=== PATIENT | male | born 1950 | race Caucasian/White ===

== ENCOUNTER 2016-11-08 17:04 | Emergency (ER) | payer MEDICARE, BC ==
[~2016-11-08] VITALS: Ht 177.8 cm; Wt 98.9 kg
[2016-11-08] MEDS ORDERED: IV NORMAL SALINE 1,000ML 1,000 ML IV SCH (17:15)
[2016-11-08] MEDS ORDERED: 0.9 % SODIUM CHLORIDE 10 ML DISP.SYRIN. IV PRN (17:15)
--- NOTE | 2016-11-08 17:28 | PHYS DOC ---
Past History Past Medical History: Anxiety, CAD, High Cholesterol, Heart Disease, Hypertension Additional Past Medical Histor: Parkinson's disease Additional Past Surgical Histo: cardiac stents Smoking: Cigarettes, Quit Greater Than 1 Year Alcohol Use: Sober Drug Use: None Adult General Chief Complaint Chief Complaint: hypertension and anxiety HPI HPI Patient is a pleasant 66-year-old male with history of hypertension, cholesterolemia, early onset Parkinson's, heart disease, anxiety who presents with hypertension and anxiety after being evaluated at a pain management clinic earlier today. Patient while being evaluated Procedure was noted to have elevated blood pressures. He denies any symptoms other than anxiety with this elevated blood pressure. Denies any chest pain, shortness breath, change in vision, problems speaking, problems with memory, focal neurologic deficits, blood in his urine, or other symptoms. He denies any change in medications at this time. He does have a history of relatively labile hypertension. His coal washer is Dr. Cotto over the [facility] at his regular doctor is Dr. Mukherjee PCP Review of Systems Review of Systems Constitutional: Denies fever or chills [] Eyes: Denies change in visual acuity, redness, or eye pain [] HENT: Denies nasal congestion or sore throat [] Respiratory: Denies cough or shortness of breath [] Cardiovascular: No additional information not addressed in HPI [] GI: Denies abdominal pain, nausea, vomiting, bloody stools or diarrhea [] : Denies dysuria or hematuria [] Musculoskeletal: He does complain of chronic back pain. Integument: Denies rash or skin lesions [] Neurologic: Denies headache, focal weakness or sensory changes [] Endocrine: Denies polyuria or polydipsia [] Psych: Does claim to be very anxious Physical Exam Physical Exam The central cartilage chart demonstrates severe hypertension with a blood pressure 122/120 5 saturation 94% on room air respiratory rate is 24 heart rate is 87. Constitutional: Well developed, well nourished, no acute distress, non-toxic appearance. [] HENT: Normocephalic, atraumatic, bilateral external ears normal, oropharynx moist, no oral exudates, nose normal. [] Eyes: PERRLA, EOMI, conjunctiva normal, no discharge. [] Neck: Normal range of motion, no tenderness, supple, no stridor. [] Cardiovascular:Heart rate regular rhythm, no murmur [] Lungs & Thorax: Bilateral breath sounds clear to auscultation [] Abdomen: Bowel sounds normal, soft, no tenderness, no masses, no pulsatile masses. [] Skin: Warm, dry, no erythema, no rash. [] Extremities: No tenderness, no cyanosis, no clubbing, ROM intact, no edema. [] Neurologic: Alert and oriented X 3, normal motor function, normal sensory function, no focal deficits noted. [] Psychologic: Very anxious with a blunted affect and judgment seems intact. EKG EKG [] EKG timed 5:25 PM 11/08/[address] Frederick demonstrates sinus rhythm with a heart rate of 80 MT interval of 150 which is normal QRS which is normal at 98 QTC is 03/29/15. Patient has some nonseptic T-wave inversions V1 no other systemic changes consistent with acute cardiac ischemia syndrome. Radiology/Procedures Radiology/Procedures [] Course & Med Decision Making Course & Med Decision Making Pertinent Labs and Imaging studies reviewed. (See chart for details) at this point patient's EKG does not demonstrate any signs of acute coronary ischemia from his hypertension. Pending troponin, CMP, urinalysis and chest x-ray. Care will be coronary to the oncoming physician Dr.Mag Vines. I have given him an IV dose of labetalol to see if I can get his blood pressure did come down approximately 30 points. If not I would advise admission to the hospital for hypertensive urgency as necessary. [] Dragon Disclaimer Dragon Disclaimer This chart was dictated in whole or in part using Voice Recognition software in a busy, high-work load, and often noisy Emergency Department environment. It may contain unintended and wholly unrecognized errors or omissions. Departure Departure: Impression: Primary Impression: Hypertensive urgency Additional Impression: Anxiety Referrals: LIDIA DIALLO APRN (PCP) Problem Qualifiers SALTY FREDERICK MD Nov 08, 2016 17:28
[2016-11-08] MEDS ORDERED: LORazepam 2 MG/ML VIAL IV ONE (17:30)
[2016-11-08] MEDS ORDERED: LABETALOL 20 MG/4 ML DISP.SYRIN. IVP ONE (17:30)
[2016-11-08] MEDS ORDERED: ASPIRIN 81 MG TAB.CHEW PO ONE (17:30)
--- NOTE | 2016-11-08 17:40 | EKG ---
[address] [address] Test Date: 2016-11-08 Test Time: 17:25:51 Pat Name: DEJA NUNEZ Department: Room: Gender: M Title Supervisor: BLAINE : [id number] Requested By: SALTY FREDERICK Order Number: [id number] Reading MD: Measurements Intervals [place] Rate: 80 P: 0 WA: 150 QRS: 5 QRSD: 98 T: 17 QT: 358 QTc: 416 Interpretive Statements SINUS RHYTHM LEFT ATRIAL ABNORMALITY QRS(T) CONTOUR ABNORMALITY CANNOT RULE OUT ANTEROSEPTAL MYOCARDIAL DAMAGE CANNOT RULE OUT INFERIOR MYOCARDIAL DAMAGE RI6.01 Unconfirmed report No previous ECG available for comparison
[2016-11-08 17:57] LABS: BASO % 0 % (0-3); EOS # 0.2 x10^3/uL (0.0-0.7); EOS % 2 % (0-3); HEMATOCRIT 45.3 % (39.0-53.0); HEMOGLOBIN 15.5 g/dL (13.0-17.5); LYMPH # 1.3 x10^3/uL (1.0-4.8); LYMPH % 14 % (24-48); MEAN CORPUSCULAR HEMOGLOBIN 30 pg (25-35); MEAN CORPUSCULAR HGB CONC 34 g/dL (31-37); MEAN CORPUSCULAR VOLUME 89 fL (79-100); MONO # 0.5 x10^3/uL (0.0-1.1); MONO % 6 % (0-9); NEUT # 7.1 x10^3uL (1.8-7.7); NEUT % 78 % (31-73); PLATELET COUNT 175 x10^3/uL (140-400); RED CELL DISTRIBUTION WIDTH 13.2 % (11.5-14.5); WHITE BLOOD COUNT 9.2 x10^3/uL (4.0-11.0)
[2016-11-08 18:16] LABS: ALBUMIN/GLOBULIN RATIO 1.4 (1.0-1.7); CREATININE 0.9 mg/dL (0.7-1.3); GFR 83.9; POTASSIUM 3.9 mmol/L (3.5-5.1); TOTAL BILIRUBIN 0.8 mg/dL (0.2-1.0); TOTAL PROTEIN 6.8 g/dL (6.4-8.2)
[2016-11-08 18:43] LABS: BACTERIA,URINE 0 /HPF (0-FEW); BILIRUBIN,URINE NEG (NEG); CLARITY,URINE CLEAR; COLOR,URINE YELLOW; GLUCOSE,URINE NEG (NEG); NITRITE,URINE NEG (NEG); RBC,URINE 0 /HPF (0-2); UROBILINOGEN,URINE 0.2 mg/dL (0.2 mg/dL); WBC,URINE 0 /HPF (0-4)
[2016-11-08] MEDS ORDERED: CARVEDILOL 12.5 MG TABLET PO STA (19:40)
[2016-11-08] MEDS ORDERED: diazePAM 2 MG TABLET PO ONE (19:45)
[2016-11-08] MEDS ORDERED: amLODIPine BESYLATE 5 MG TABLET PO ONE (19:45)
[2016-11-08 21:03] VITALS: BP 190/111
--- NOTE | 2016-11-08 21:55 | PHYS DOC ---
Departure Departure: Impression: Primary Impression: Hypertensive urgency Additional Impression: Anxiety Disposition: 01 HOME, SELF-CARE Condition: IMPROVED Referrals: LIDIA DIALLO APRN (PCP) Patient Instructions: Hypertension Additional Instructions: Please call your family doctor or superintendent renting managing in the morning for reevaluation of his blood pressure. Return the ER if you have any concerns throughout the course of the night or any concerns prior to seeing her family doctor. Assessment Status/Problems: Doing well Additional comments: This is a 66-year-old gentleman who was signed out to me for further evaluation of his elevated blood pressure. Patient's ER workup has been unremarkable thus far. Patient exhibits no signs or symptoms that would be be consistent with hypertensive emergency/an organ damage. Patient has been given a dose of labetalol IV, Ativan IV. Patient's blood pressures remained elevated. Patient was then given his nighttime dose of carvedilol and Valium in the ED. Patient also given a dose of by mouth 10 mg Norvasc to initiate therapy for his hypertension. While in the ER the patient's blood pressure has slightly improved from his visit with the pain specialist. Patient's systolic now is 190 and his diastolic is 101. Patient was in the greater than 220/110 range prior to arrival. Patient's blood pressure has been coming down gradually. I want to avoid overaggressive treatment of his hypertension. We have initiated therapy and the patient feel very comfortable with him going home. reports that he is very anxious currently because he is here in the hospital and he will do much better if he went home to relax. She reports she is hungry and is agitated every time the blood pressure goes up. Patient's thinks that it would be in his best interest to discharge him here and she will follow his blood pressure closely at home and she will call his doctor and superintendent renting managing in the morning for further evaluation and recommendations. Given that the patient's does not exhibit any evidence of end organ damage I feel that this is probably an appropriate course of action. I personally topical admitting him to the hospital and does appear to agitate him even further. I feel that it would be appropriate to discharge him home at this time since his blood pressure has improved from the time that he was over at the pain center and we have initiated therapy here in the ED. Patient's otherwise clinically and hemodynamically stable at this time to be discharged home with further outpatient evaluation and monitoring of his blood pressure. reports that if his blood pressure starts to spike again that she will bring him back to the ER. Problem Qualifiers TAMIR OSUNA MD Nov 08, 2016 21:55
--- NOTE | 2016-11-09 07:36 | RAD ---
Chest radiograph 11/08/2016 at 1717 hours Indication: Hypertension Comparison: None available Technique: Portable upright frontal view of the chest is provided. Findings: Cardiomediastinal silhouette is enlarged no pleural effusions, pulmonary vascular congestion or pneumothorax. The lungs are clear. Osseous structures are normal. Impression: Cardiomegaly without acute cardiopulmonary process.
== END 2016-11-08 22:15 | disposition home or self-care (01) ==
LOC: ER 17:04
DX: I16.0 Hypertensive urgency (principal); F41.9 Anxiety disorder, unspecified; G89.29 Other chronic pain; E78.00 Pure hypercholesterolemia, unspecified; F17.210 Nicotine dependence, cigarettes, uncomplicated; I25.10 Atherosclerotic heart disease of native coronary artery without angina pectoris; I11.9 Hypertensive heart disease without heart failure
CPT/HCPCS: 36415; 71010; 80053; 81001; 82947; 83880; 84484; 85025; 93005; 96361; 96374; 96375; 99285; J2060; J3490; J7030

== ENCOUNTER → 2017-01-03 | Outpatient (CLI) | payer MEDICARE, BC ==
[~2017-01-03] MED LIST: BUPIVACAINE MPF 0.5% 30 ML VIAL. ONE; IV NORMAL SALINE 250ML 250 ML ONE; LIDOCAINE 1% PF 30 ML VIAL. ONE; LIDOCAINE 2% PF Vial for OR 5 ML VIAL. ONE; MIDAZOLAM HCL PF 2 MG/2 ML VIAL. ONE; PROPOFOL 0 ML IV ONE; methylPREDNISolone ACETATE 40 MG/ML VIAL. ONE
== END | disposition home or self-care (01) ==
LOC: SURG 07:49
PROVIDERS: ATTEND Anesthesiology Pain Medicine
DX: M47.816 Spondylosis without myelopathy or radiculopathy, lumbar region (principal)
CPT/HCPCS: 64635; 64636; 82947; J1030; J2001; J2250; J3010; J3490; J7050; J2704

== ENCOUNTER → 2017-01-24 | Outpatient (CLI) | payer MEDICARE, BC ==
[~2017-01-24] MED LIST changes: +BUPIVACAINE MPF 0.25% 10 ML VIAL. ONE; -BUPIVACAINE MPF 0.5% 30 ML VIAL. ONE; +IOHEXOL 300 MG/ML 50 ML VIAL. ONE; -IV NORMAL SALINE 250ML 250 ML ONE; -LIDOCAINE 2% PF Vial for OR 5 ML VIAL. ONE; -MIDAZOLAM HCL PF 2 MG/2 ML VIAL. ONE; -PROPOFOL 0 ML IV ONE
== END | disposition home or self-care (01) ==
LOC: SURG 14:07
PROVIDERS: ATTEND Anesthesiology Pain Medicine
DX: M54.16 Radiculopathy, lumbar region (principal); I10 Essential (primary) hypertension; M19.91 Primary osteoarthritis, unspecified site; E11.9 Type 2 diabetes mellitus without complications
CPT/HCPCS: 64483; 64484; J1030; J2001; J3490; Q9967

== ENCOUNTER → 2017-02-13 | Outpatient (CLI) | payer MEDICARE, BC ==
[~2017-02-13] MED LIST changes: +DEXAMETHASONE SOD PHOS 4 MG/ML VIAL ONE; -IOHEXOL 300 MG/ML 50 ML VIAL. ONE; -LIDOCAINE 1% PF 30 ML VIAL. ONE; -methylPREDNISolone ACETATE 40 MG/ML VIAL. ONE
== END | disposition home or self-care (01) ==
LOC: SURG 14:35
PROVIDERS: ATTEND Anesthesiology
DX: M79.1 Myalgia (principal); I10 Essential (primary) hypertension; M19.91 Primary osteoarthritis, unspecified site; J32.9 Chronic sinusitis, unspecified
CPT/HCPCS: 20553; J1100; J3490

== ENCOUNTER → 2017-05-31 | Outpatient (CLI) | payer MEDICARE, BC ==
[~2017-05-31] MED LIST changes: -DEXAMETHASONE SOD PHOS 4 MG/ML VIAL ONE; +LIDOCAINE 1% PF 30 ML VIAL. ONE
== END | disposition home or self-care (01) ==
LOC: SURG 12:30
PROVIDERS: ATTEND Anesthesiology Pain Medicine
DX: M79.1 Myalgia (principal); I10 Essential (primary) hypertension; E11.9 Type 2 diabetes mellitus without complications; M19.90 Unspecified osteoarthritis, unspecified site; Z95.5 Presence of coronary angioplasty implant and graft; Z79.899 Other long term (current) drug therapy; Z79.82 Long term (current) use of aspirin; Z79.84 Long term (current) use of oral hypoglycemic drugs
CPT/HCPCS: 20553; J2001; J3490; 20550; 99213

== ENCOUNTER → 2017-10-05 | Outpatient (CLI) | payer MEDICARE, BC ==
[~2017-10-05] MED LIST changes: +ACET-1571 PO; +ALPR0.5T PO; +ASPI81TA50 PO; -BUPIVACAINE MPF 0.25% 10 ML VIAL. ONE; +BUSP15TA PO; +CARB1TAB2 PO; +CARV25TA PO; +CYAN1TAB17 PO; +GABA-586 PO; +HYDR-2758 PO; +LACT1CAP8 PO; +LEVO1CAP PO; -LIDOCAINE 1% PF 30 ML VIAL. ONE; +LISI30TA4 PO; +MECL25TA3 PO; +MELO15TA23 PO; +METF500T5 PO; +MULT1TAB52 PO; +NAPR220C4 PO; +POLY17PO5 PO; +SIMV40TA3 PO; +TIZA4TAB PO; +TRAM50TA PO; +TRAZ-85 PO; +VORT20TA PO
== END | disposition home or self-care (01) ==
LOC: SURG 08:24
PROVIDERS: ATTEND Anesthesiology Pain Medicine
DX: M47.816 Spondylosis without myelopathy or radiculopathy, lumbar region (principal); M79.1 Myalgia; G89.4 Chronic pain syndrome; F11.90 Opioid use, unspecified, uncomplicated
CPT/HCPCS: 99214

== ENCOUNTER → 2017-11-02 | Day surgery (SDC) | payer MEDICARE, BC ==
[~2017-11-02] MED LIST changes: +BUPIVACAINE MPF 0.25% 10 ML VIAL. ONE; +DEXAMETHASONE SOD PHOS 4 MG/ML VIAL ONE; +LIDOCAINE 1% PF 30 ML VIAL. ONE; +MIDAZOLAM HCL PF 2 MG/2 ML VIAL. ONE
[2017-11-02 09:48] VITALS: BP 148/85
== END | disposition home or self-care (01) ==
LOC: SURG 07:23
PROVIDERS: ATTEND Anesthesiology Pain Medicine
DX: M47.816 Spondylosis without myelopathy or radiculopathy, lumbar region (principal); I10 Essential (primary) hypertension; Z95.5 Presence of coronary angioplasty implant and graft; E11.9 Type 2 diabetes mellitus without complications; E78.5 Hyperlipidemia, unspecified; I25.10 Atherosclerotic heart disease of native coronary artery without angina pectoris; F32.9 Major depressive disorder, single episode, unspecified; F41.9 Anxiety disorder, unspecified; G89.29 Other chronic pain; Z79.82 Long term (current) use of aspirin; Z79.899 Other long term (current) drug therapy; Z79.84 Long term (current) use of oral hypoglycemic drugs; Z87.891 Personal history of nicotine dependence
CPT/HCPCS: 64635; 64636; 99152; 99153; J1100; J2001; J2250; J3010; J3490

== ENCOUNTER → 2017-11-23 | Day surgery (SDC) | payer MEDICARE, BC ==
[~2017-11-23] MED LIST changes: +IV RINGERS SOLUTION,LACTATED 1,000 ML IV SCH; +METF500T16 PO; -METF500T5 PO
[2017-11-23 12:06] VITALS: BP 142/87
== END | disposition home or self-care (01) ==
LOC: SURG 09:57
PROVIDERS: ATTEND Anesthesiology Pain Medicine
DX: M47.816 Spondylosis without myelopathy or radiculopathy, lumbar region (principal); I10 Essential (primary) hypertension; Z95.5 Presence of coronary angioplasty implant and graft; E11.9 Type 2 diabetes mellitus without complications; Z79.82 Long term (current) use of aspirin; Z79.899 Other long term (current) drug therapy; Z79.84 Long term (current) use of oral hypoglycemic drugs
CPT/HCPCS: 64635; 64636; 82947; 99152; 99153; J1100; J2001; J2250; J3010; J3490; J7120

== ENCOUNTER → 2017-12-12 | Outpatient (CLI) | payer MEDICARE, BC ==
[2017-11-23 12:06] VITALS: BP 142/87
[~2017-12-12] MED LIST changes: -DEXAMETHASONE SOD PHOS 4 MG/ML VIAL ONE; -IV RINGERS SOLUTION,LACTATED 1,000 ML IV SCH; -LIDOCAINE 1% PF 30 ML VIAL. ONE; +LIDOCAINE 2% PF Vial for OR 5 ML VIAL. ONE; -MIDAZOLAM HCL PF 2 MG/2 ML VIAL. ONE
== END | disposition home or self-care (01) ==
LOC: SURG 10:19
PROVIDERS: ATTEND Anesthesiology Pain Medicine
DX: M79.1 Myalgia (principal); I10 Essential (primary) hypertension; E11.9 Type 2 diabetes mellitus without complications; Z95.5 Presence of coronary angioplasty implant and graft; Z79.82 Long term (current) use of aspirin; Z79.899 Other long term (current) drug therapy; Z79.84 Long term (current) use of oral hypoglycemic drugs
CPT/HCPCS: 20552; J3490; 64492; J2001

== ENCOUNTER → 2018-01-24 | Outpatient (CLI) | payer MEDICARE, BC ==
[2017-11-23 12:06] VITALS: BP 142/87
[~2018-01-24] MED LIST changes: -BUPIVACAINE MPF 0.25% 10 ML VIAL. ONE; +BUPIVACAINE MPF 0.25% 30 ML VIAL. ONE; +LIDOCAINE 1% PF 30 ML VIAL. ONE; -LIDOCAINE 2% PF Vial for OR 5 ML VIAL. ONE
== END ==
LOC: SURG 13:13
PROVIDERS: ATTEND Anesthesiology Pain Medicine
DX: M79.18 Myalgia, other site (principal)
CPT/HCPCS: 20552; J2001; J3490